=== PATIENT | female | born 1950 | race Caucasian/White ===

== ENCOUNTER 2017-11-21 08:35 | Day surgery (SDC) | payer MEDICARE, MEDICAID ==
[~2017-11-21] VITALS: Ht 157.5 cm; Wt 70.3 kg
[~2017-11-21 08:35] MED LIST: ASPI-1159 PO; ATOR40TA70 PO; HYDR25TA PO; INSLIS SUBCUT; INSU100I28 SQ; LEVO125T8 PO; LISI40TA4 PO; OMEP40CA34 PO; SERT25TA74 PO; TRAZ-129 PO
[2017-11-21] MEDS ORDERED: SODIUM CHLORIDE 0.9% 1,000 ML IV SCH (09:40)
[2017-11-21 09:50] LABS: EOSINOPHILS % 3.4 % (0.0-5.0); HEMATOCRIT. 37.4 % (36.0-48.0); HEMOGLOBIN. 12.7 g/dL (12.0-16.0); LYMPHOCYTES % 25.1 % (20.0-50.0); MEAN CORPUSCULAR HEMOGLOBIN 26.9 pg (28.0-32.0); MEAN CORPUSCULAR VOLUME 79.2 fL (81.0-99.0); MEAN PLATELET VOLUME 8.1 fl (7.4-10.4); MONOCYTES % 5.4 % (2.0-8.0); NEUTROPHILS % 65.1 % (40.0-76.0); PLATELET 314 x1000/uL (130-400); RED BLOOD CELL COUNT 4.72 mill/uL (4.2-5.4); RED CELL DISTRIBUTION WIDTH 14.3 % (11.6-14.6)
[2017-11-21 09:59] LABS: PARTIAL THROMBOPLASTIN TIME 25.1 sec (23.4-31.0); PROTHROMBIN TIME 10.3 sec (9.4-11.6)
[2017-11-21 10:02] LABS: CHLORIDE 104 mEq/L (98-107)
[2017-11-21] MEDS ORDERED: CALC0.253 PO (10:36)
[2017-11-21] MEDS ORDERED: SIMETHICONE 40 MG/0.6 ML 30ML ONE (11:18)
[2017-11-21] MEDS ORDERED: PROPOFOL 200MG/20ML VIAL IV ONE (11:18)
[2017-11-21] MEDS ORDERED: MIDAZOLAM HCL 5 MG/5 ML VIAL ONE (11:18)
[2017-11-21] MEDS ORDERED: SUCCINYLCHOLINE CHLORIDE 200MG/10ML VIAL IV ONE (11:22)
[2017-11-21] MEDS ORDERED: LIDOCAINE HCL/PF 1% 10 MG/ML 30ML VIAL ONE (11:22)
[2017-11-21] MEDS ORDERED: ONDANSETRON HCL 4MG/2ML VIAL IV PRN (11:45)
[2017-11-21] MEDS ORDERED: HYDROMORPHONE HCL/PF 2MG/ML CPJ IV PRN (11:45)
[2017-11-21] MEDS ORDERED: SODIUM CHLORIDE 0.9% 1,000 ML IV ONE (11:45)
[2017-11-21] MEDS ORDERED: EPINEPHRINE 0.1MG/ML (1:10,000) 10ML SYR ONE (13:36)
== END 2017-11-21 12:45 | disposition home or self-care (01) ==
LOC: OR 08:35
PROVIDERS: ATTEND Internal Medicine Gastroenterology
DX: K31.7 Polyp of stomach and duodenum (principal); K25.9 Gastric ulcer, unspecified as acute or chronic, without hemorrhage or perforation; D50.9 Iron deficiency anemia, unspecified; K21.9 Gastro-esophageal reflux disease without esophagitis; I10 Essential (primary) hypertension; M19.90 Unspecified osteoarthritis, unspecified site; E11.9 Type 2 diabetes mellitus without complications; E78.00 Pure hypercholesterolemia, unspecified; E89.0 Postprocedural hypothyroidism; Z88.8 Allergy status to other drugs, medicaments and biological substances; Z85.850 Personal history of malignant neoplasm of thyroid; Z79.4 Long term (current) use of insulin; Z98.890 Other specified postprocedural states; Z79.899 Other long term (current) drug therapy; Z79.82 Long term (current) use of aspirin
CPT/HCPCS: 36415; 43236; 43239; 80048; 82962; 85025; 85610; 85730; 88305; 88312; 88313; 93005; J0330; J2250; J3490; J7030; J2704